=== PATIENT | female | born 1980 | race Two or more races ===

== ENCOUNTER 2017-08-14 09:59 | Outpatient (CLI) | payer OTHER ==
[~2017-08-14] VITALS: Ht 172.7 cm; Wt 106.8 kg
[2017-08-14 09:55] VITALS: BP 121/68
[~2017-08-14 09:59] MED LIST: PREN1TAB27 PO
== END 2017-08-14 10:50 | disposition home or self-care (01) ==
LOC: LDOP 09:59
PROVIDERS: ATTEND Obstetrics & Gynecology Maternal & Fetal Medicine
DX: O09.523 Supervision of elderly multigravida, third trimester (principal); Z3A.36 36 weeks gestation of pregnancy
CPT/HCPCS: 59025; 99201; G0463

== ENCOUNTER → 2019-10-12 | Outpatient (CLI) | payer BC, OTHER ==
[~2019-10-12] MED LIST changes: +ENERGY PO; +[UNRECOGNIZED DRUG - OTHER] PO
[2019-10-12 11:17] LABS: BASOPHILS # (AUTO) 0.04 x10^3/uL (0-0.1); BASOPHILS % (AUTO) 1 % (0-1); EOSINOPHILS % (AUTO) 2 % (1-7); LYMPHOCYTES # (AUTO) 2.27 x10^3/uL (1-3.4); LYMPHOCYTES % (AUTO) 37 % (22-44); MD NO; MEAN CORPUSCULAR HEMOGLOBIN 26.9 pg (27.0-34.8); MEAN CORPUSCULAR VOLUME 81.7 fL (80-100); MONOCYTES # (AUTO) 0.34 x10^3/uL (0.2-0.8); MONOCYTES % (AUTO) 6 % (2-9); NEUTROPHILS # (AUTO) 3.41 x10^3/uL (1.8-6.8); NEUTROPHILS % (AUTO) 55 % (42-75); PLATELET COUNT 248 x10^3/uL (130-400); RED BLOOD COUNT 5.14 x10^6/uL (3.82-5.3); RED CELL DISTRIBUTION WIDTH 13.6 % (9.6-15.2)
[2019-10-12 11:24] LABS: ALANINE AMINOTRANSFERASE 22 U/L (12-78); ALBUMIN 3.7 g/dL (3.4-5.0); ANION GAP 4 mmol/L (5-15); CALCIUM 8.9 mg/dL (8.5-10.1); CHLORIDE 106 mmol/L (98-107); CREATININE 0.76 mg/dL (0.55-1.02)
[2019-10-12 11:28] LABS: ALKALINE PHOSPHATASE 82 U/L (45-117); BILIRUBIN,TOTAL 0.3 mg/dL (0.2-1.0); TOTAL PROTEIN 7.8 g/dL (6.4-8.2)
== END | disposition home or self-care (01) ==
LOC: STAR 10:21
PROVIDERS: ATTEND Surgery
DX: Z01.818 Encounter for other preprocedural examination (principal)
CPT/HCPCS: 36415; 80053; 84703; 85025

== ENCOUNTER 2019-10-18 05:38 | Observation (INO) | payer BC, OTHER ==
[~2019-10-18] VITALS: Ht 175.3 cm; Wt 121.0 kg
[2019-10-18 06:15] VITALS: BP 114/76
[2019-10-18] MEDS ORDERED: LACTATED RINGERS 1,000 ML IV SCH (06:18)
[2019-10-18] MEDS ORDERED: LIDOCAINE-MPF 1%, 2ML ONE (06:20)
[2019-10-18] MEDS ORDERED: LIDOCAINE-MPF 1%, 2ML INFIL ONE (06:30)
[2019-10-18] MEDS ORDERED: LIDOCAINE-MPF 2% ,5ML ONE ×5 (06:58→09:37)
[2019-10-18] MEDS ORDERED: BUPIVACAINE/PF 0.5% ONE (06:58)
[2019-10-18] MEDS ORDERED: EPINEPHRINE 1 MG/ML, 1ML ONE (06:58)
[2019-10-18] MEDS ORDERED: SCOPOLAMINE 1MG PATCH TD SCH (07:00)
[2019-10-18] MEDS ORDERED: GABAPENTIN 300 MG CAPSULE PO ONE (07:00)
[2019-10-18] MEDS ORDERED: DIAZEPAM 5 MG TABLET PO ONE (07:00)
[2019-10-18] MEDS ORDERED: ACETAMINOPHEN 500 MG TABLET PO ONE (07:00)
[2019-10-18 07:04] LABS: HCG UR SG 1.015 (1.003-1.030)
[2019-10-18] MEDS ORDERED: FENTANYL PF 250 MCG/5ML ONE (07:06)
[2019-10-18] MEDS ORDERED: MIDAZOLAM 1 MG/ML, 2ML ONE (07:06)
[2019-10-18] MEDS ORDERED: PROPOFOL 50 ML ONE ×3 (07:06→09:36)
[2019-10-18] MEDS ORDERED: BACITRACIN 50,000 UNIT ONE (07:50)
[2019-10-18] MEDS ORDERED: GENTAMICIN 80 MG/2 ML ONE (07:50)
[2019-10-18] MEDS ORDERED: CEFAZOLIN 1,000 MG ONE ×2 (07:50→08:29)
[2019-10-18] MEDS ORDERED: GLYCOPYRROLATE 0.2MG/1ML, 5ML ONE (08:29)
[2019-10-18] MEDS ORDERED: SUCCINYLCHOLINE 20 MG/ML, 10ML ONE (08:29)
[2019-10-18] MEDS ORDERED: ROCURONIUM 10MG/ML,5ML ONE (08:29)
[2019-10-18] MEDS ORDERED: ONDANSETRON 2MG/ML, 2ML ONE (08:29)
[2019-10-18] MEDS ORDERED: NEOSTIGMINE 1 MG/ML, 10ML ONE (08:29)
[2019-10-18] MEDS ORDERED: DEXAMETHASONE 4 MG/ML, 1ML ONE (08:29)
[2019-10-18] MEDS ORDERED: PROPOFOL 10 MG/ML, 20ML ONE (08:29)
[2019-10-18] MEDS ORDERED: OXYcodone 5 MG/5 ML ORAL.SOL UDC PO PRN ×2 (09:00→13:30)
[2019-10-18] MEDS ORDERED: ALBUTEROL/IPRATROPIUM 2.5MG/0.5MG, 3 ML NPPB PRN (09:00)
[2019-10-18] MEDS ORDERED: HYDROmorphone 2 MG/ML, 1ML IVPush PRN (09:00)
[2019-10-18] MEDS ORDERED: METOPROLOL 1 MG/ML, 5ML IV PRN (09:00)
[2019-10-18] MEDS ORDERED: MEPERIDINE/PF 25MG/ML,1ML IVPush PRN (09:00)
[2019-10-18] MEDS ORDERED: MIDAZOLAM 1 MG/ML, 2ML IV PRN (09:00)
[2019-10-18] MEDS ORDERED: hydrALAzine 20 MG/ML, 1ML IV PRN (09:00)
[2019-10-18] MEDS ORDERED: PROMETHAZINE 25 MG/ML, 1ML IV PRN (09:00)
[2019-10-18] MEDS ORDERED: ACETAMINOPHEN 325 MG TABLET PO PRN (09:00)
[2019-10-18] MEDS ORDERED: FENTANYL PF 100 MCG/2ML ONE ×2 (10:07→11:06)
[2019-10-18] MEDS ORDERED: OXYcodone 5 MG/5 ML ORAL.SOL UDC ONE (11:06)
[2019-10-18] MEDS: FENTANYL PF 100 MCG/2ML IV PRN ×2 (11:10→11:28)
[2019-10-18] MEDS: LACTATED RINGERS 1,000 ML IV SCH ×2 (13:30→20:44)
[2019-10-18] MEDS ORDERED: ONDANSETRON 2MG/ML, 2ML IVPush PRN (13:30)
[2019-10-18] MEDS ORDERED: MORPHINE SULFATE 4 MG/ML, 1ML IVPush PRN (13:30)
[2019-10-18] MEDS: IBUPROFEN 600 MG TABLET PO SCH ×2 (16:00→20:42)
[2019-10-18 19:32] VITALS: BP 115/75
[2019-10-19 00:43] VITALS: BP 95/59
[2019-10-19 04:17] VITALS: BP 94/58
[2019-10-19] MEDS: IBUPROFEN 600 MG TABLET PO SCH ×2 (05:54→10:18)
[2019-10-19 07:04] VITALS: BP 96/60
[2019-10-19] MEDS: LACTATED RINGERS 1,000 ML IV SCH (09:30)
[2019-10-19] MEDS ORDERED: HYDR-3240 PO (13:27)
[2019-10-19] MEDS ORDERED: ONDA4TAB13 PO (13:28)
== END 2019-10-19 14:00 | disposition home or self-care (01) ==
LOC: OUT 05:38 → 4NE 12:27 → OUT 14:40 → 4NE 14:45 → DCLOUNGE 10-19 13:45
PROVIDERS: ADMIT Surgery; ATTEND Surgery
DX: C50.912 Malignant neoplasm of unspecified site of left female breast (principal); C50.911 Malignant neoplasm of unspecified site of right female breast; E66.9 Obesity, unspecified; Z80.3 Family history of malignant neoplasm of breast; Z68.38 Body mass index [BMI] 38.0-38.9, adult; Z80.9 Family history of malignant neoplasm, unspecified
CPT/HCPCS: 19303; 19357; 81025; 88307; 96374; C1729; C1762; C1789; G0378; J0171; J0330; J0690; J1100; J1170; J1580; J2250; J2270; J2405; J2704; J2710; J3010; J3490; J7120; S0020